=== PATIENT | male | born 1995 | race Caucasian/White ===

== ENCOUNTER 2022-06-26 18:38 | Emergency (ER) | payer OTHER ==
[2022-06-26 18:44] VITALS: BP 122/85; PULSE 68; RESP 18; TEMP 98
--- NOTE | 2022-06-26 18:45 | ED ---
General Adult HPI - General Chief complaint: Extremity Injury, Upper Stated complaint: [facility] - fall Time Seen by Provider: 06/26/22 18:39 Source: patient Mode of arrival: ambulatory - History of Present Illness Initial comments: Dictation was produced using [employer] dictation software. please excuse any grammatical, word or spelling errors. Chief Complaint: 26-year-old male presents with right wrist injury History of Present Illness: Patient 26-year-old male presents emergency department right wrist injury. 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 He fell backwards on outstretched hand. Complains of pain to his right lateral hand medial hand and right lateral wrist. Event occurred approximate 6 hours prior to arrival. Denies any pain over the scaphoid bone The ROS documented in this emergency department record has been reviewed and confirmed by me. Those systems with pertinent positive or negative responses have been documented in the HPI. All other systems are other negative and/or noncontributory. PHYSICAL EXAM: General Impression: Alert and oriented x3, not in acute distress HEENT: Normocephalic atraumatic, extra-ocular movements intact, pupils equal and reactive to light bilaterally, mucous membranes moist. Cardiovascular: Heart regular rate and rhythm Chest: Able to complete full sentences, no retractions, no tachypnea Musculoskeletal: Pulses present and equal in all extremities, no peripheral edema Motor: no focal deficits noted Neurological: CN II-XII grossly intact, no focal motor or sensory deficits noted Skin: Intact with no visualized rashes Psych: Normal affect and mood Right hand: No pain over the scaphoid tubercle. No pain over the snuffbox. No pain at the base of the thumb axial loading. No gross deformities ED course: 26-year-old male presents emergency Department with right wrist injury. Vital signs upon arrival are within acceptable limits. No obvious abnormalities on physical examination. Clinically no concern for scaphoid injury Nursing notes and chart review was performed CT imaging was considered however patient's symptoms can be evaluated only with x-ray. Analgesics were considered analgesics but patient refused. X-ray unremarkable. Patient discharged. Clinical presentation consistent with acute right wrist strain. - Related Data Allergies Allergy/AdvReac Type Severity Reaction Status Date / Time No Known Allergies Allergy Verified 06/26/22 18:44 Review of Systems ROS Statement: Those systems with pertinent positive or pertinent negative responses have been documented in the HPI. ROS Other: All systems not noted in ROS Statement are negative. Past Medical History Past Medical History: No Reported History History of Any Multi-Drug Resistant Organisms: None Reported Past Surgical History: No Surgical Hx Reported Past Psychological History: No Psychological Hx Reported Smoking Status: Never smoker Past Alcohol Use History: None Reported Past Drug Use History: None Reported Course Vital Signs 06/26/22 18:41 Temperature 98 F Pulse Rate 68 Respiratory 18 Rate Blood Pressure 122/85 O2 Sat by Pulse 100 Oximetry Disposition Clinical Impression: Strain of right wrist Disposition: HOME SELF-CARE Condition: Good Instructions (If sedation given, give patient instructions): Wrist Injury (ED) Is patient prescribed a controlled substance at d/c from ED?: No Referrals: None,Stated [Primary Care Provider] - 1-2 days Time of Disposition: 19:13
--- NOTE | 2022-06-26 19:05 | XR ---
EXAMINATION TYPE: XR wrist complete RT DATE OF EXAM: 06/26/2022 COMPARISON: NONE HISTORY: Fall. Pain TECHNIQUE: 4 views FINDINGS: There is no evidence of fracture nor dislocation. Carpal bones are intact. Metacarpals are intact. IMPRESSION: Negative right wrist exam
== END 2022-06-26 19:33 | disposition home or self-care (01) ==
LOC: EC 18:38
DX: S63.501A Unspecified sprain of right wrist, initial encounter (principal); W01.198A Fall on same level from slipping, tripping and stumbling with subsequent striking against other object, initial encounter; Y99.0 Civilian activity done for income or pay
CPT/HCPCS: 99283